=== PATIENT | female | born 1955 | race Caucasian/White ===

== ENCOUNTER 2019-01-01 12:06 | Emergency (ER) | payer MEDICAID, OTHER ==
[~2019-01-01] VITALS: Ht 154.9 cm; Wt 58.0 kg
[2019-01-01] MEDS ORDERED: METHYLPREDNISOLONE SOD SUCC 125 MG/2 ML VIAL IV STA (12:38)
[2019-01-01] MEDS ORDERED: IPRATROPIUM BROMIDE (0.02%) 0.5MG/2.5ML NEB HHN STA (12:38)
[2019-01-01] MEDS ORDERED: MAGNESIUM 2 G PREMIX 50 ML IV ONE (12:45)
[2019-01-01] MEDS ORDERED: ALBUTEROL (0.083%) 2.5MG/3ML NEB HHN SCH (13:00)
[2019-01-01 13:08] LABS: BASOPHILS % 1.1 % (0.0-2.0); EOSINOPHILS % 6.3 % (0.0-5.0); HEMATOCRIT. 34.3 % (36.0-48.0); HEMOGLOBIN. 11.8 g/dL (12.0-16.0); LYMPHOCYTES % 37.3 % (20.0-50.0); MEAN CORPUSCULAR HEMOGLOBIN 29.6 pg (28.0-32.0); MEAN PLATELET VOLUME 7.8 fl (7.4-10.4); MONOCYTES % 4.5 % (2.0-8.0); NEUTROPHILS % 50.8 % (40.0-76.0); PLATELET 343 x1000/uL (130-400); RED BLOOD CELL COUNT 3.99 mill/uL (4.2-5.4); RED CELL DISTRIBUTION WIDTH 13.1 % (11.6-14.6)
[2019-01-01 13:15] LABS: CHLORIDE 114 mEq/L (98-107)
[2019-01-01 14:19] VITALS: BP 149/75
== END 2019-01-01 15:20 | disposition home or self-care (01) ==
LOC: ER 12:15
DX: J45.909 Unspecified asthma, uncomplicated (principal); D64.9 Anemia, unspecified; E11.9 Type 2 diabetes mellitus without complications; E78.00 Pure hypercholesterolemia, unspecified; I10 Essential (primary) hypertension
CPT/HCPCS: 36415; 71045; 80053; 83880; 84484; 85025; 93005; 94640; 96365; 96375; 99284; J2930; J3475; J7611; Z7610

== ENCOUNTER 2022-01-18 05:13 | Emergency (ER) | payer OTHER, MEDICAID ==
[~2022-01-18] VITALS: Ht 160 cm; Wt 56.0 kg
[~2022-01-18 05:13] MED LIST: AZIT500T8 MT
[2022-01-18] MEDS ORDERED: KETOROLAC 30MG/ML VIAL IV ONE (10:45)
[2022-01-18 11:03] VITALS: BP 164/88
[2022-01-18 11:06] LABS: BASOPHILS % 0.4 % (0.0-2.0); EOSINOPHILS % 0.8 % (0.0-5.0); HEMATOCRIT. 38.6 % (36.0-48.0); HEMOGLOBIN. 13.1 g/dL (12.0-16.0); MEAN CORPUSCULAR HEMOGLOBIN 28.4 pg (28.0-32.0); MEAN CORPUSCULAR VOLUME 83.8 fL (81.0-99.0); MEAN PLATELET VOLUME 8.4 fl (7.4-10.4); NEUTROPHILS % 72.8 % (40.0-76.0); PLATELET 352 x1000/uL (130-400); RED CELL DISTRIBUTION WIDTH 13.6 % (11.6-14.6)
[2022-01-18 11:16] LABS: PROTHROMBIN TIME 10.4 sec (9.6-11.0)
[2022-01-18 11:39] LABS: CHLORIDE 103 mEq/L (98-107)
[2022-01-18] MEDS ORDERED: IOHEXOL-300 100 ML BOTTLE ONE (13:16)
[2022-01-18] MEDS ORDERED: DEXAMETHASONE 10 MG/ML VIAL IV ONE (14:45)
[2022-01-18 15:25] LABS: MONOTEST NEGATIVE (NEGATIVE)
[2022-01-18] MEDS ORDERED: P20 MT (15:38)
[2022-01-18] MEDS ORDERED: ACET-2708 MT (15:38)
== END 2022-01-18 17:08 | disposition home or self-care (01) ==
LOC: ER 05:13
DX: R51.9 Headache, unspecified (principal); J45.909 Unspecified asthma, uncomplicated; E11.9 Type 2 diabetes mellitus without complications; I10 Essential (primary) hypertension
CPT/HCPCS: 36415; 70487; 70491; 80053; 85025; 85610; 86308; 87070; 87430; 96374; 96375; 99285; J1100; J1885; Q9967

== ENCOUNTER 2024-01-30 09:11 | Emergency (ER) | payer OTHER ==
[~2024-01-30] VITALS: Ht 157.5 cm; Wt 55.3 kg
[~2024-01-30 09:11] MED LIST changes: +ACET-2708 MT; +P20 MT
[2024-01-30 09:24] VITALS: O2SAT 98
[2024-01-30 10:24] VITALS: PULSE 80; RESP 20
[2024-01-30] MEDS: ALBUTEROL (0.083%) 2.5MG/3ML NEB HHN STA (10:24)
[2024-01-30] MEDS: IPRATROPIUM BROMIDE (0.02%) 0.5MG/2.5ML NEB HHN STA (10:25)
[2024-01-30] MEDS ORDERED: ALBU90AE INH (11:21)
[2024-01-30] MEDS ORDERED: P20 MT (11:21)
[2024-01-30 11:33] VITALS: BP 124/67; PULSE 92; RESP 18; TEMP 36.89184; O2SAT 96
[2024-01-30] MEDS: MAGNESIUM 2 G PREMIX 50 ML IV ONE (11:36)
[2024-01-30] MEDS: METHYLPREDNISOLONE SOD SUCC 125MG/2ML (ACT-O-VIAL) IV STA (11:36)
== END 2024-01-30 12:09 | disposition home or self-care (01) ==
LOC: ER 09:11
DX: J45.901 Unspecified asthma with (acute) exacerbation (principal); E11.9 Type 2 diabetes mellitus without complications; I10 Essential (primary) hypertension; Z20.822 Contact with and (suspected) exposure to COVID-19
CPT/HCPCS: 71045; 87426; 87804; 93005; 94640; 99285